=== PATIENT | female | born 1945 | race Caucasian/White ===

== ENCOUNTER 2017-08-22 11:13 | Outpatient (CLI) | payer MEDICARE, OTHER ==
--- NOTE | 2017-08-24 14:02 | Mammography Report ---
DATE OF SERVICE: 08/22/2017 DIGITAL SCREENING MAMMOGRAM: 08/23/2017 CLINICAL INDICATION: A 71-year-old with history of benign biopsy for screening. COMPARISON: 07/2016, 02/2015, 12/2013, 11/2012, 06/2011, 05/2010, 04/2010. TECHNIQUE: Routine CC and MLO projections were obtained of the breasts. FINDINGS: The breasts demonstrate scattered fibroglandular densities bilaterally. In the left upper outer central breast, there is a possible developing density. Further evaluation with spot compression vie ws and possible ultrasound is recommended. No mammographically suspicious findings are appreciated in the r ight breast. IMPRESSION: Incomplete examination. RECOMMENDATION: Additional evaluation of the left breast as above. BIRADS CATEGORY 0 - Incomplete. STANDARD QUALIFYING STATEMENTS: 1. This examination was reviewed with the aid of Computer-Aided Detection (CAD). 2. A negative or benign imaging report should not delay biopsy if clinically suspicious findings are present. Consider surgical consultation if warranted. More than 5% of cancers are not identified by imaging. 3. Dense breasts may obscure an underlying neoplasm. TD: 08/23/2017 11:07
== END 2017-08-22 11:14 | disposition home or self-care (01) ==
LOC: DI 11:13
PROVIDERS: ATTEND Internal Medicine
DX: Z12.31 Encounter for screening mammogram for malignant neoplasm of breast (principal); R92.8 Other abnormal and inconclusive findings on diagnostic imaging of breast
CPT/HCPCS: 77067

== ENCOUNTER 2017-09-17 12:46 | Outpatient (CLI) | payer MEDICARE, OTHER ==
--- NOTE | 2017-09-17 17:06 | Mammography Report ---
DIAGNOSTIC LEFT MAMMOGRAM: 09/17/2017 CLINICAL INDICATION: Possible developing density left upper outer central breast. TECHNIQUE: Left true lateral and spot compression views. COMPARISON: 08/22/2017, 08/16/2016, 02/24/2015, 01/05/2014, 12/18/2012, 2011, 06/28/2011, 05/31/2010. FINDINGS: The left breast demonstrates scattered fibroglandular densities. The density in question, in the left upper outer central breast, does not persist on additional compression. No underlying mass or architectural distortion is identified. IMPRESSION: NEGATIVE EXAMINATION. RECOMMENDATION: Routine annual screening unless otherwise clinically indicated. BIRADS CATEGORY 1 - NEGATIVE. STANDARD QUALIFYING STATEMENTS 1. This examination was reviewed with the aid of Computed Aided Detection (CAD). 2. A negative x-ray report should not delay biopsy if a dominant or clinically suspicious mass is present. More than 5% of cancers are not identified by x-ray. 3. Dense breasts may obscure an underlying neoplasm. TD: 09/17/2017 17:57 LELA
== END 2017-09-17 12:47 | disposition home or self-care (01) ==
LOC: DI 12:46
PROVIDERS: ATTEND Internal Medicine
DX: R92.8 Other abnormal and inconclusive findings on diagnostic imaging of breast (principal)

== ENCOUNTER 2018-02-03 09:51 | Inpatient (IN) | payer MEDICARE, OTHER ==
[2018-02-03 10:43] LABS: BASOPHILS % (AUTO) 0.6 %; EOSINOPHILS # (AUTO) 0.1 10^3/uL (0.0-0.7); HGB - HEMOGLOBIN 13.7 g/dL (12.0-16.0); LYMPHOCYTES % (AUTO) 13.8 %; MEAN CORPUSCULAR HEMOGLOBIN 32.6 pg (27.0-31.0); MEAN CORPUSCULAR VOLUME 95.9 fL (81.0-99.0); MEAN PLATELET VOLUME 8.6 fL (7.9-10.8); MONOCYTES # (AUTO) 1.2 10^3/uL (0.0-1.0); MONOCYTES % (AUTO) 16.8 %; NEUTROPHILS % (AUTO) 67.8 %; PLT - PLATELET COUNT 201 10^3/uL (130-450); WHITE BLOOD COUNT 7.3 x10^3/uL (4.8-10.8)
[2018-02-03 10:44] LABS: GLUCOSE, URINE (UA) NEGATIVE (NEGATIVE); KETONES,URINE (UA) 15 mg/dL (NEGATIVE); LEUKOCYTE ESTERASE, URINE TRACE (NEGATIVE); NITRITE,URINE POSITIVE (NEGATIVE); OCCULT BLOOD,URINE NEGATIVE (NEGATIVE); PROTEIN,URINE 100 mg/dL (NEGATIVE); UROBILINOGEN,URINE 1 (NORMAL) E.U./dL (NORMAL)
[2018-02-03 10:47] LABS: BILIRUBIN,URINE NEGATIVE (NEGATIVE); CLARITY,URINE HAZY (CLEAR); ICTOTEST,URINE NEGATIVE
[2018-02-03 10:53] LABS: BACTERIA,URINE Moderate /HPF (None Seen); RBC,URINE 0-5 /HPF (0-5); SQUAMOUS EPITHELIAL CELL,UR RARE Squamous (<= Few)
[2018-02-03 10:54] LABS: MUCUS,URINE Marked Strands
[2018-02-03 10:54] LABS: ALBUMIN 3.8 g/dL (3.2-5.5); BILIRUBIN,TOTAL 0.8 mg/dL (0.2-1.0); CALCIUM 9.3 mg/dL (8.5-10.3); CREATININE 0.9 mg/dL (0.4-1.0); TOTAL PROTEIN 7.6 g/dL (6.7-8.2)
--- NOTE | 2018-02-03 11:21 | ED Physician Documentation ---
PD HPI ABD PAIN - Stated complaint Stated Complaint: LOW AB PX - Chief complaint Chief Complaint: Abd Pain - History obtained from History obtained from: Patient - History of Present Illness Timing - onset: How many weeks ago (2) Timing - duration: Weeks (She started with lower abdominal pain 2 weeks ago and that continued for several days. FL consistent with prior episodes of diverticulitis. She went to her primary care Dr. Gamez who prescribed doxycycline twice daily. The patient did not feel improvement over the following week. She went back to the office 3 days ago on with the similar symptoms and a benign abdominal exam and so was changed to oral medications of Cipro and Flagyl. The patient states she started having increased lower abdominal pain with a feeling of bloating and some episodes of vomiting Sunday which was 2 days ago and yesterday. She has not had as much oral intake because of persistent nausea. She comes to the ER today because of continued symptoms. She denies any fever. She has not had any diarrhea. She states she had a very small bowel movement yesterday.) Timing - details: Gradual onset, Still present Quality: Cramping, Aching Location: Periumbilical, Other (lower abd) Radiation: Lower back Improved by: No: Vomiting Worsened by: Eating, Position (feels better reclined, worse flat), Palpation Associated symptoms: Nausea, Vomiting (few times since 2 days ago). No: Fever, Hematemesis, Diarrhea, Dysuria Similar symptoms before: Diagnosis (diverticulitis couple times in the past) Recently seen: Clinic Review of Systems Constitutional: denies: Fever Nose: denies: Rhinorrhea / runny nose, Congestion Throat: denies: Sore throat Cardiac: denies: Chest pain / pressure, Palpitations Respiratory: denies: Dyspnea, Cough GI: reports: Abdominal Pain, Abdominal Swelling (the past 2-3 days), Nausea, Vomiting (few times). denies: Constipation, Diarrhea, Bloody / black stool : denies: Dysuria, Frequency Skin: denies: Rash, Lesions Neurologic: reports: Generalized weakness. denies: Focal weakness, Numbness, Near syncope, Altered mental status Endocrine: denies: Weight loss Immunocompromised: denies: Immunocompromised PD PAST MEDICAL HISTORY - Past Medical History Cardiovascular: None Respiratory: None Endocrine/Autoimmune: HyPOthyroidism GI: Diverticulitis : None HEENT: None Psych: None Musculoskeletal: None, Osteoporosis Derm: None - Present Medications Home Medications: Ambulatory Orders Medication Instructions Recorded Confirmed Acyclovir [Zovirax] 800 mg PO DAILY 01/31/13 01/31/13 Levothyroxine Sodium [Levoxyl] 125 mcg PO DAILY 01/31/13 01/31/13 - Allergies Allergies/Adverse Reactions: Allergies Allergy/AdvReac Type Severity Reaction Status Date / Time Sulfa (Sulfonamide AdvReac Itching Verified 02/03/18 10:11 Antibiotics) PD ED PE NORMAL - Vitals Vital signs reviewed: Yes - General General: Alert and oriented X 3, Well developed/nourished, Other (appears uncomfortable) - HEENT HEENT: Pharynx benign. No: Moist mucous membranes - Neck Neck: Supple, no meningeal sign, No adenopathy - Cardiac Cardiac: RRR, No murmur - Respiratory Respiratory: Clear bilaterally - Abdomen Abdomen: Soft, No organomegaly, Other (She has a feeling of distention in the lower part of the abdomen. It is not tense. There is general tenderness in the lower half of the abdomen with some mild guarding. There is no percussion or rebound tenderness. The upper abdomen is not tender. There are no inguinal hernias felt. There is no femoral adenopathy.). No: Normal bowel sounds ( increased) - Female Female : Deferred - Rectal Rectal: Deferred - Back Back: No CVA TTP - Derm Derm: Normal color, Warm and dry - Extremities Extremities: No tenderness to palpate, Normal ROM s pain, No edema, No calf tenderness / cord - Neuro Neuro: Alert and oriented X 3, No motor deficit, Normal speech Results - Vitals Vitals: Vital Signs - 24 hr 02/03/18 02/03/18 02/03/18 10:07 15:13 16:35 Temperature 36.5 C Heart Rate 73 57 L 56 L Respiratory 15 16 16 Rate Blood Pressure 145/81 H 125/69 123/88 H O2 Saturation 99 100 100 02/03/18 18:19 Temperature Heart Rate 74 Respiratory 20 Rate Blood Pressure 150/81 H O2 Saturation 100 Oxygen O2 Source Room air - Labs Labs: Laboratory Tests 02/03/18 02/03/18 02/03/18 10:30 10:38 10:38 WBC 7.3 RBC 4.20 Hgb 13.7 Hct 40.2 MCV 95.9 MCH 32.6 H MCHC 34.0 RDW 13.0 Plt Count 201 MPV 8.6 Neut # (Auto) 5.0 Lymph # (Auto) 1.0 L [place] # (Auto) 1.2 H Eos # (Auto) 0.1 Baso # (Auto) 0.0 Absolute Nucleated RBC 0.00 Nucleated RBC % 0.0 Sodium 136 Potassium 3.4 L Chloride 100 L Carbon Dioxide 27 Anion Gap 9.0 BUN 14 Creatinine 0.9 Estimated GFR (MDRD) 62 L Glucose 117 H Lactic Acid Calcium 9.3 Total Bilirubin 0.8 AST 28 ALT 18 Alkaline Phosphatase 59 Total Protein 7.6 Albumin 3.8 Globulin 3.8 Albumin/Globulin Ratio 1.0 Lipase 16 L Urine Color DARK YELLOW Urine Clarity HAZY Urine pH 5.0 Ur Specific [place] >=1.030 H Urine Protein 100 H Urine Glucose (UA) NEGATIVE Urine Ketones 15 H Urine Occult Blood NEGATIVE Urine Nitrite POSITIVE H Urine Bilirubin NEGATIVE Urine Urobilinogen 1 (NORMAL) Ur Leukocyte Esterase TRACE H Urine RBC 0-5 Urine WBC 6-10 H Ur Squamous Epith Cells RARE Squamous Urine Bacteria Moderate H Urine Mucus Marked Strands Ur Microscopic Review INDICATED Urine Culture Comments INDICATED 02/03/18 14:20 WBC RBC Hgb Hct MCV MCH MCHC RDW Plt Count MPV Neut # (Auto) Lymph # (Auto) [place] # (Auto) Eos # (Auto) Baso # (Auto) Absolute Nucleated RBC Nucleated RBC % Sodium Potassium Chloride Carbon Dioxide Anion Gap BUN Creatinine Estimated GFR (MDRD) Glucose Lactic Acid 0.9 Calcium Total Bilirubin AST ALT Alkaline Phosphatase Total Protein Albumin Globulin Albumin/Globulin Ratio Lipase Urine Color Urine Clarity Urine pH Ur Specific [place] Urine Protein Urine Glucose (UA) Urine Ketones Urine Occult Blood Urine Nitrite Urine Bilirubin Urine Urobilinogen Ur Leukocyte Esterase Urine RBC Urine WBC Ur Squamous Epith Cells Urine Bacteria Urine Mucus Ur Microscopic Review Urine Culture Comments - Rads (name of study) abd/pelvic CT Radiology: Prelim report reviewed (sigmoid diverticulitis without abscess nor perforation; also cecal volvulus), EMP read contemporaneously repeat CT with oral contrast Radiology: Prelim report reviewed (again seen is the cecal volvulus with some contrast getting through the tight area. Again is the diverticulitis. ) PD MEDICAL DECISION MAKING - ED course Complexity details: reviewed results (Initial CT report where showing some stranding and inflammation around the sigmoid colon consistent with diverticulitis. They also had a reading of dilation of the cecum with some decompression and twisting around its mesentery suggestive of cecal volvulus. There is no cecal wall thickening or adjacent fat stranding or fluid however. Surgical consultation is recommended.), re-evaluated patient (I updated the patient on the findings and the need for repeat CT scan. We will be having her in the hospital at least for the failed outpatient treatment of the diverticulitis. She was given IV antibiotics here with an initial presumption. However there is now concern for the findings of the volvulus on the CT scan and that would need to be better evaluated by a repeat CT with oral contrast and a surgical consultation.), d/w wardrobe image consultant (Dr. Hawkins - who asks for rpeat CT with PO contrast. Then he comes to the ER to admit the patient. ) - Sepsis Event Vital Signs: Vital Signs - 24 hr 02/03/18 02/03/18 02/03/18 10:07 15:13 16:35 Temperature 36.5 C Heart Rate 73 57 L 56 L Respiratory 15 16 16 Rate Blood Pressure 145/81 H 125/69 123/88 H O2 Saturation 99 100 100 02/03/18 18:19 Temperature Heart Rate 74 Respiratory 20 Rate Blood Pressure 150/81 H O2 Saturation 100 Oxygen O2 Source Room air Departure - Departure Disposition: 66 [facility] DC/Xfer Clinical Impression: Abdominal pain, Cecal volvulus, Sigmoid diverticulitis Condition: Stable
[2018-02-03] MEDS ORDERED: cefTRIAXone 1 GM in SODIUM CHLORIDE 0.9% MINIBAG 100 ML IV STA (11:43)
[2018-02-03] MEDS ORDERED: SODIUM CHLORIDE 0.9% 1,000 ML IV ONE ×3 (11:43→16:54)
[2018-02-03] MEDS ORDERED: ONDANSETRON 4 MG/2 ML VIAL IVP STA (11:43)
[2018-02-03] MEDS ORDERED: metroNIDAZOLE 500 MG/100 ML 500 MG/100 ML BAG IV ONE (11:44)
[2018-02-03] MEDS ORDERED: KETOROLAC 15 MG/ML VIAL IVP STA (11:44)
[2018-02-03] MEDS ORDERED: MORPHINE 2 MG/ML SYRINGE IVP STA (11:45)
[2018-02-03] MEDS ORDERED: IOPAMIDOL-300 100 ML VIAL ONE (12:00)
[2018-02-03] MEDS ORDERED: IOPAMIDOL-300 100 ML VIAL IVP ONE (13:23)
--- NOTE | 2018-02-03 13:54 | CT Report ---
EXAM: CT ABDOMEN AND PELVIS EXAM DATE: 02/03/2018 01:23 PM. CLINICAL HISTORY: Lower abdominal pain, h/o diverticulitis. COMPARISONS: 12/29/2009. TECHNIQUE: Routine helical CT imaging was performed through the abdomen and pelvis. IV contrast: 100 cc Isovue-300. Enteric contrast: No. Reconstructions: Coronal and sagittal. In accordance with CT protocol optimization, one or more of the following dose reduction techniques w ere utilized for this exam: automated exposure control, adjustment of mA and/or KV based on patient s ize, or use of iterative reconstructive technique. FINDINGS: Lung Bases: Unremarkable. Liver: Normal. No masses. Gallbladder/Bile Ducts: Unremarkable. Spleen: Normal. Pancreas: Normal. Adrenal Glands: Normal. Kidneys: Normal. No masses or hydronephrosis. Peritoneal Cavity/Bowel: No free fluid, free air, or adenopathy. No evidence of small bowel obstructi on. The cecum is displaced medially and superiorly with twisting around its mesentery, as appreciated on coronal images (series 5, images 16-19). Maximum cecal diameter measures up to 6.4 cm (series 3 i mage 30). There is gas and layering fluid within the cecum. There is a transition point in the right side of the abdomen (series 3 image 39). There is no cecal wall thickening, adjacent fat stranding, o r fluid. There is extensive diverticulosis of the sigmoid colon. There is mild wall thickening and adjacent fa t stranding of the sigmoid colon, suggestive of acute diverticulitis. No free fluid, free air, or abs cess formation. The appendix is not well visualized. Punctate densities at the margin of the cecum suggest prior appe ndectomy. There is no inflammatory change adjacent to the cecum to suggest acute appendicitis. Pelvic Organs: Normal. The bladder and visualized pelvic organs are within normal limits. Vasculature: No aneurysms or other significant abnormality. Bones: No significant abnormality. Other: None. IMPRESSION: 1. Findings consistent with cecal volvulus. Maximum cecal diameter measures up to 6.4 cm. No wall thi ckening, mesenteric edema, or free fluid. Surgical consultation is recommended. 2. Extensive diverticulosis of the sigmoid colon. Mild wall thickening and adjacent fat stranding is suspicious for acute diverticulitis. No evidence of perforation or abscess formation. [facility] Referring Provider Line: [phone] SITE ID: [id number]
[2018-02-03] MEDS ORDERED: IOPAMIDOL-300 50 ML VIAL ONE (14:26)
[2018-02-03] MEDS: ONDANSETRON 4 MG/2 ML VIAL IVP STA (15:05)
[2018-02-03] MEDS ORDERED: ACETAMINOPHEN 1,000 MG/100 ML 100 ML IV STA (15:45)
--- NOTE | 2018-02-03 16:40 | CT Report ---
EXAM: CT ABDOMEN AND PELVIS EXAM DATE: 02/03/2018 04:05 PM. CLINICAL HISTORY: Give oral contrast please. COMPARISONS: CT abdomen and pelvis today with intravenous contrast.. TECHNIQUE: Routine helical CT imaging was performed through the abdomen and pelvis. IV contrast: No. Enteric contrast: Yes. Reconstructions: Coronal and sagittal. In accordance with CT protocol optimization, one or more of the following dose reduction techniques w ere utilized for this exam: automated exposure control, adjustment of mA and/or KV based on patient s ize, or use of iterative reconstructive technique. FINDINGS: Lung Bases: Unremarkable. Liver: Normal. No masses. Gallbladder/Bile Ducts: Unremarkable. Spleen: Normal in size. Pancreas: Unremarkable. Adrenal Glands: Normal. Kidneys: There is contrast within the collecting system of both kidneys. There is no hydronephrosis i dentified. Peritoneal Cavity/Bowel: The cecum is ectopic and is located in the anterior midline upper abdomen. T he diameter of the cecum measures 8.3 cm. There is oral contrast material located within the cecum. T here is focal narrowing of the ascending colon which makes a spiral turn in the right lower quadrant. There is oral contrast within the lumen of the ascending colon distal to this narrowing. There is wa ll thickening and stranding around the distal sigmoid colon in the pelvis. Fat stranding is seen in t he low right pelvis. Pelvic Organs: Urinary bladder is filled with contrast material. Vasculature: The abdominal aorta is normal in caliber. Bones: No significant abnormality. Other: None. IMPRESSION: 1. 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 2. Some of the oral contrast has passed through the ileocecal valve into the cecum, and beyond the na rrowed area in the proximal ascending colon to the distal ascending colon. 3. Thickening and stranding around the distal sigmoid colon in the low pelvis suspicious for colitis, diverticulitis or neoplasm. 4. No pneumatosis, perforation, or abscess. [facility] Referring Provider Line: [phone] SITE ID: [id number]
[2018-02-03] MEDS ORDERED: PROMETHAZINE 25 MG/1 ML VIAL IM PRN (19:18)
[2018-02-03] MEDS ORDERED: ONDANSETRON 4 MG/2 ML VIAL IVP PRN (19:18)
[2018-02-03] MEDS: MORPHINE 2 MG/ML SYRINGE IVP PRN ×2 (20:06→22:50)
--- NOTE | 2018-02-03 20:38 | CONSULTATION NOTE ---
Referring Provider Name of Referring Provider:: Dr. Tarun Veras Consult Date: 02/03/18 Chief Complaint - Chief Complaint Chief Complaint: Abdominal pain History of Present Illness - Admitted From Admitted From:: [facility] - History Obtained From Records Reviewed: Yes History obtained from: Chart, patient, family, friends Exam Limitations: None - History of Present Illness HPI Comment/Other: This very pleasant 72 year old female presented to [facility] ED with a several week history of diverticulitis that was interestingly initially treated with doxycycline. When this did not help the patient was switched to ciprofloxacin and flagyl. This seemed to help a bit more but when persistent abdominal pain and bloating resulted in nausea and vomiting the patient presented to the ED for evaluation. The patient's last bowel movement was the day prior to presentation and was small in size. To my knowledge the patient has not had a colonoscopy. History - Past Medical History Cardiovascular: reports: None Respiratory: reports: None Endocrine/Autoimmune: reports: HyPOthyroidism GI: reports: Diverticulitis : reports: None HEENT: reports: None Psych: reports: None Musculoskeletal: reports: None, Osteoporosis Derm: reports: None MRSA Hx?: No Meds/Allgy - Home Medications Home Medications: Ambulatory Orders Medication Instructions Recorded Confirmed Levothyroxine Sodium [Levoxyl] 100 mcg PO DAILY 01/31/13 02/04/18 Cyclosporine [Restasis] 1 each OP BID 02/03/18 02/04/18 Acyclovir 400 mg PO .5 TIMES DAILY X5DAY PRN 02/04/18 02/04/18 Amox/Clav 875/125 [Augmentin 1 tab PO BID #8 tablet 02/06/18 875/125] - Allergies Allergies/Adverse Reactions: Allergies Allergy/AdvReac Type Severity Reaction Status Date / Time Sulfa (Sulfonamide AdvReac Itching Verified 02/03/18 10:11 Antibiotics) Review of Systems - Cardiovascular Cariovascular: denies: Irregular heart rate, Palpitations, Chest pain - Respiratory Respiratory: denies: Cough, Sputum production, Wheezing, Hemoptysis - Gastrointestinal Gastrointestinal: reports: Abdominal pain, Abdominal distention, Nausea, Vomiting - Genitourinary Genitourinary: denies: Dysuria - Psychiatric Psychiatric: denies: Depression, Suicidal Exam - Vital Signs Reviewed Vital Signs: Yes Vital Signs: Vital Signs x48h Pulse Resp BP Pulse Ox 02/03/18 18:19 74 20 150/81 H 100 02/03/18 16:35 56 L 16 123/88 H 100 02/03/18 15:13 57 L 16 125/69 100 - Physical Exam General Appearance: positive: No acute distress Eyes Bilateral: positive: No lid inflammation, Conjunctivae nml, No scleral icterus ENT: positive: Dry mucous membranes Neck: positive: Trachea midline Respiratory: positive: Chest non-tender, No respiratory distress Cardiovascular: positive: Regular rate & rhythm Abdomen: positive: Other (Slight distention but only slight with some decreased bowel sounds. No peritoneal findings and no palpable hepatospenomegaly. 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 The treatment for cecal volvulus is a RIGHT hemicolectomy whereas the treatment for recurrent sigmoid diverticulitis is also resection but a sigmoid resection. If both of these were to be done then the patient would have very little colon remaining and would almost certainly be saddled with lifelong diarrhea. The other question that has not been answered is whether or not the findings in the sigmoid colon represent recurrent diverticulitis or a malignancy. This surgical dilemma was discussed at length with the patient. I think that the way to proceed is with a colonoscopy (as prepped as I can get her from below) in order to answer the question of malignancy versus diverticulitis. Then armed with this information a decision could be entertained to resect the sigmoid colon and use the redundant right and transverse colon to perform the colocolostomy thus preserving the greatest amount of colon and hopefully avoiding diarrhea. I have discussed this at length with the patient but explained that I would be heading out of town and would not be able to see her surgical adventure through and would be handing her care over to my two partners Dr. Pennington and Ryan Barros. Well over 90 minutes of naem-ct-chux time was spent with the majority of it spent in discussion and coordination of her care. - Lab Results Lab results reviewed: Yes Fish Bones: 02/04/18 12:45 02/04/18 12:45 - Diagnostic Imaging Results Diagnostic Imaging Results: positive: Final report reviewed, Discussed with radiologist, Read independently
[2018-02-03] MEDS: D5NS W/20 MEQ KCL 1,000 ML IV SCH (20:39)
[2018-02-03] MEDS: SODIUM CHLORIDE FLUSH 0.9% 10 ML SYRINGE IVP PRN (20:39)
[2018-02-04] MEDS: SODIUM CHLORIDE FLUSH 0.9% 10 ML SYRINGE IVP SCH ×3 (02:26→15:54)
[2018-02-04] MEDS: PANTOPRAZOLE 40 MG VIAL IVP SCH (07:08)
[2018-02-04] MEDS ORDERED: ACETAMINOPHEN 325 MG TABLET PO PRN (07:21)
[2018-02-04] MEDS: MORPHINE 2 MG/ML SYRINGE IVP PRN (08:47)
[2018-02-04] MEDS: ACETAMINOPHEN 1,000 MG/100 ML 100 ML IV PRN (08:52)
[2018-02-04] MEDS: D5NS W/20 MEQ KCL 1,000 ML IV SCH ×2 (08:53→20:07)
[2018-02-04] MEDS: POLYETHYLENE GLYCOL 3350 17 GM PACKET PO SCH (08:58)
[2018-02-04] MEDS: SALINE ENEMA 133 ML BOTTLE RC SCH ×2 (09:16→15:56)
[2018-02-04 13:08] LABS: BASOPHILS % (AUTO) 0.9 %; EOSINOPHILS # (AUTO) 0.2 10^3/uL (0.0-0.7); EOSINOPHILS % (AUTO) 5.1 %; HGB - HEMOGLOBIN 12.7 g/dL (12.0-16.0); LYMPHOCYTES # (AUTO) 1.2 10^3/uL (1.5-3.5); LYMPHOCYTES % (AUTO) 24.4 %; MEAN CORPUSCULAR HEMOGLOBIN 32.7 pg (27.0-31.0); MEAN CORPUSCULAR HGB CONC 33.7 g/dL (32.0-36.0); MEAN PLATELET VOLUME 8.9 fL (7.9-10.8); MONOCYTES # (AUTO) 0.9 10^3/uL (0.0-1.0); MONOCYTES % (AUTO) 19.2 %; NEUTROPHILS # (AUTO) 2.4 10^3/uL (1.5-6.6); NEUTROPHILS % (AUTO) 50.4 %; PLT - PLATELET COUNT 196 10^3/uL (130-450); RED BLOOD COUNT 3.87 10^6/uL (4.20-5.40); RED CELL DISTRIBUTION WIDTH 12.9 % (12.0-15.0); WHITE BLOOD COUNT 4.8 x10^3/uL (4.8-10.8)
[2018-02-04 13:21] LABS: ALBUMIN 3.3 g/dL (3.2-5.5); ALBUMIN/GLOBULIN RATIO 1.1 (1.0-2.2); BILIRUBIN,TOTAL 0.5 mg/dL (0.2-1.0); CALCIUM 8.4 mg/dL (8.5-10.3); CREATININE 0.6 mg/dL (0.4-1.0); TOTAL PROTEIN 6.4 g/dL (6.7-8.2)
--- NOTE | 2018-02-04 13:48 | XRAY Report ---
SUPINE ABDOMEN: 02/04/2018 CLINICAL INDICATION: Cecal volvulus, evaluate gas pattern. FINDINGS: Supine views of the abdomen are compared to previous CT of 02/03/2018. Colonic gas pattern appears more normal. Oral contrast is again seen in the distal small bowel loops. No small bowel dilatation is appreciated. IMPRESSION: IMPROVEMENT IN COLONIC GAS PATTERN FROM 02/03/2018. TD: 02/04/2018 12:58
[2018-02-04] MEDS ORDERED: LACTATED RINGERS 1,000 ML IV ONE (16:07)
[2018-02-04] MEDS ORDERED: MIDAZOLAM 2 MG/2 ML VIAL IVP ONE (16:15)
[2018-02-04] MEDS ORDERED: LIDOCAINE-MPF 2% 5 ML VIAL IM ONE (16:15)
[2018-02-05] MEDS: SODIUM CHLORIDE FLUSH 0.9% 10 ML SYRINGE IVP SCH ×3 (01:23→16:57)
[2018-02-05] MEDS: ACETAMINOPHEN 1,000 MG/100 ML 100 ML IV PRN (05:29)
[2018-02-05] MEDS: D5NS W/20 MEQ KCL 1,000 ML IV SCH ×2 (05:29→16:57)
[2018-02-05] MEDS: SODIUM CHLORIDE FLUSH 0.9% 10 ML SYRINGE IVP PRN (05:54)
[2018-02-05] MEDS: PANTOPRAZOLE 40 MG VIAL IVP SCH (05:54)
[2018-02-05] MEDS: POLYETHYLENE GLYCOL 3350 17 GM PACKET PO SCH (08:06)
--- NOTE | 2018-02-05 10:48 | PROVIDER PROGRESS NOTE ---
Subjective - General Admit Date: 02/03/18 Procedure Date: 02/04/18 Post Op Days: 22 Procedure Performed: Colonoscopy (incomplete) Objective - Patient Data Reviewed Vital Signs: Yes Vital Signs: Vital Signs x48h Temp Pulse Resp BP Pulse Ox 02/05/18 08:00 36.6 C 66 16 115/69 98 Weight: Weight 02/03/18 02/04/18 02/05/18 23:59 23:59 23:59 Weight (kg) 67 kg Intake & Output: Intake and Output Totals x24h 02/03/18 02/04/18 02/05/18 23:59 23:59 23:59 Intake Total 2234.747 1822.333 1276.667 Balance 2181.863 5546.333 1276.667 - Lab Results Lab Results: 02/04/18 12:45 02/04/18 12:45 Other Lab Results: Lab Results x24hrs 02/04/18 02/04/18 02/04/18 Range/Units 12:45 12:45 12:45 WBC 4.8 (4.8-10.8) x10^3/uL RBC 3.87 L (4.20-5.40) 10^6/uL Hgb 12.7 (12.0-16.0) g/dL Hct 37.6 (37.0-47.0) % MCV 97.0 (81.0-99.0) fL MCH 32.7 H (27.0-31.0) pg MCHC 33.7 (32.0-36.0) g/dL RDW 12.9 (12.0-15.0) % Plt Count 196 (130-450) 10^3/uL MPV 8.9 (7.9-10.8) fL Neut # (Auto) 2.4 (1.5-6.6) 10^3/uL Lymph # (Auto) 1.2 L (1.5-3.5) 10^3/uL Rabun # (Auto) 0.9 (0.0-1.0) 10^3/uL Eos # (Auto) 0.2 (0.0-0.7) 10^3/uL Baso # (Auto) 0.0 (0.0-0.1) 10^3/uL Absolute Nucleated RBC 0.00 x10^3/uL Nucleated RBC % 0.0 /100WBC Sodium 139 (135-145) mmol/L Potassium 3.4 L (3.5-5.0) mmol/L Chloride 109 (101-111) mmol/L Carbon Dioxide 24 (21-32) mmol/L Anion Gap 6.0 (6-13) BUN 5 L (6-20) mg/dL Creatinine 0.6 (0.4-1.0) mg/dL Estimated GFR (MDRD) 99 (>89) Glucose 112 H (70-100) mg/dL Calcium 8.4 L (8.5-10.3) mg/dL Total Bilirubin 0.5 (0.2-1.0) mg/dL AST 28 (10-42) IU/L ALT 15 (10-60) IU/L Alkaline Phosphatase 48 (42-121) IU/L Total Protein 6.4 L (6.7-8.2) g/dL Albumin 3.3 (3.2-5.5) g/dL Globulin 3.1 (2.1-4.2) g/dL Albumin/Globulin Ratio 1.1 (1.0-2.2) Carcinoembryonic Ag 2.9 ng/mL - Current Medications Current Medications: Current Medications Generic Name Dose Route Start Last Admin Trade Name Freq PRN Reason Stop Dose Admin Potassium Chloride/Dextrose/Sod Cl 1,000 mls @ 100 mls/hr 02/03/18 20:00 08/13 05:29 IV 100 mls/hr .Q10H SANTHOSH Administration Acetaminophen 100 mls @ 400 mls/hr 02/04/18 07:25 02/05/18 05:53 Ofirmev IV Infused Q6HR PRN Infusion PAIN Morphine Sulfate 2 mg 02/03/18 19:18 02/04/18 08:47 Morphine IVP 2 mg Q2H PRN Administration Pain 8 to 10 Pantoprazole Sodium 40 mg 02/04/18 07:00 02/05/18 05:54 Protonix IVP 40 mg QDAC SANTHOSH Administration Polyethylene Glycol 17 gm 02/04/18 09:00 02/05/18 08:06 Miralax PO Not Given DAILY SANTHOSH Sodium Chloride 10 ml 02/03/18 19:06 02/05/18 05:54 Normal Saline Flush 0.9% IVP 10 ml PRN PRN Administration NEEDED PER PROVIDER ORDERS Sodium Chloride 10 ml 02/04/18 01:00 02/05/18 08:06 Normal Saline Flush 0.9% IVP Not Given 0100,0900,1700 SANTHOSH - Physical Exam General Appearance: positive: Mild distress Eyes Bilateral: positive: No lid inflammation, Conjunctivae nml, No scleral icterus ENT: positive: No signs of dehydration Neck: positive: Trachea midline Respiratory: positive: Chest non-tender, No respiratory distress, Breath sounds nml Cardiovascular: positive: Regular rate & rhythm Abdomen: positive: Tenderness, Other (Subjectively the patient feels better and has passed some gas. Still with slight distention but again slightly improved. Positive bowel sounds.) Skin: positive: Color nml Extremities: positive: Nml appearance Neurologic/Psychiatric: positive: Oriented x3 Impression/Plan - Problem List Problem List: The patient had an incomplete colonoscopy yesterday due to sigmoid diverticulitis which prevented the safe placement of the colonoscope past the area of the diverticulitis. Now the debate begins as mentioned in the consultation the treatment of the cecal volvulus would be a right hemicolectomy whereas the sigmoid colon now must be surgically address hopefully sooner rather than later. Now with a high grade obstruction how does one prep the colon for the resection? The patient, during our conversations, has made it clear that she does not want a colostomy and I explained to her that with all colon surgery no one can guarantee no colostomy. I have initiated speaking with my surgical partners as I will be out of town and the patient's surgical decision making and possible surgery should certainly be discussed with them. I also explained to the patient that I have two partner and that between the 3 of us there are 4 opinions on what to do. In other words I explained to her that the problems of volvulus and sigmoid diverticulitis happen not infrequently but together they are a rare occurence. I think a gastrograffin enema is in order to help differentiate further the the disease process in her sigmoid colon as well as determine the grade of the partial obstruction.
[2018-02-05] MEDS: LEVOTHYROXINE 100 MCG TABLET PO SCH (20:58)
[2018-02-06] MEDS: SODIUM CHLORIDE FLUSH 0.9% 10 ML SYRINGE IVP SCH ×2 (00:08→07:15)
[2018-02-06] MEDS: D5NS W/20 MEQ KCL 1,000 ML IV SCH ×2 (02:19→13:17)
[2018-02-06] MEDS: LEVOTHYROXINE 100 MCG TABLET PO SCH (04:50)
[2018-02-06] MEDS: PANTOPRAZOLE 40 MG VIAL IVP SCH (06:27)
[2018-02-06] MEDS: SODIUM CHLORIDE FLUSH 0.9% 10 ML SYRINGE IVP PRN (06:27)
[2018-02-06] MEDS: POLYETHYLENE GLYCOL 3350 17 GM PACKET PO SCH (07:15)
--- NOTE | 2018-02-06 08:29 | XRAY Report ---
Procedure Date: 02/06/2018 Accession Number: [id number] / [id number] Procedure: XR - Abdomen Acute CPT Code: FULL RESULT: EXAM: ABDOMINAL SERIES AND PA CHEST EXAM DATE: 02/06/2018 06:32 AM. CLINICAL HISTORY: Abdominal distension. COMPARISON: 02/04/2018. 02/03/2018. TECHNIQUE: 2 views abdomen and 1 view chest. FINDINGS: CHEST: Lungs/Pleura: Linear right medial lower lung parenchymal scarring. No consolidation. No pneumothorax. Mediastinum: Heart size upper normal. Aorta is mildly tortuous. ABDOMEN: Bowel Gas Pattern: Mild to moderate gaseous distention of small bowel and colon. Contrast is present in the colon. No portal venous gas or pneumatosis. Free Air: None. Other: Mild degenerative changes. IMPRESSION: 1. No acute disease in the chest. 2. Mild to moderate gaseous distention of small bowel and colon without evidence for obstruction. Contrast present in the colon. RADIA
[2018-02-06] MEDS ORDERED: AMOX/CLAV 875 MG/125 MG TABLET PO SCH (14:00)
[2018-02-06 16:08] VITALS: BP 126/85
--- NOTE | 2018-02-06 18:16 | Discharge Plan ---
Discharge Plan Disposition: Home, Self Care Prescriptions: Amox/Clav 875/125 [Augmentin 875/125] 1 tab PO BID #8 tablet Diet: Regular (low residual) Shower Restrictions: No Driving Restrictions: No Weight Bearing: Full Weight No Smoking: If you smoke, Please STOP! Call for help. Follow-up with: Gini Gamez MD [Primary Care Provider] - 2 Weeks Gorge Barros MD [Provider Admit Priv/Credential] - 2 Weeks
[2018-02-06] MEDS ORDERED: LEVOTHYROXINE 100 MCG TABLET PO SCH (21:00)
--- NOTE | 2018-02-07 01:41 | PROVIDER PROGRESS NOTE ---
Subjective - General Admit Date: 02/03/18 - Review of Systems General: positive: No symptoms Gastrointestinal: positive: No symptoms Objective - Patient Data Intake & Output: Intake and Output Totals x24h 02/05/18 02/06/18 02/07/18 23:59 23:59 23:59 Intake Total 3304.667 2866.667 Balance 3304.667 2866.667 - Lab Results Lab Results: 02/04/18 12:45 02/04/18 12:45 - Physical Exam Abdomen: positive: Non-tender Impression/Plan - Problem List Problem List: 1) recurrent diverticulitis. currently on augmentin with no abdominal symptoms. 2) possible sigmoid obstruction seen on colonoscopy. Gastrograffin enema today. 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 Will be having gastrograffin study today to r/u this out.
[2018-02-07] MEDS ORDERED: IOPAMIDOL-300 50 ML VIAL PO ONE (08:26)
--- NOTE | 2018-02-07 11:13 | DISCHARGE SUMMARY ---
Physician: Gorge Barros MD DATE OF ADMISSION: 02/03/2018 DATE OF DISCHARGE: 02/06/2018 REASON FOR ADMISSION: Abdominal pain. HISTORY OF PRESENT ILLNESS: The patient is a 72-year-old female who has had recurrent lower abdominal pain that was considered to be secondary to diverticulitis. She had been treated with doxycycline with some improvement, but continued abdominal pain. This has been going on for approximately 2 weeks now. She then had continued abdominal pain and was started on Cipro and Flagyl. Because of increasing pain in the lower pelvic area on the right side, she came to the emergency room to be evaluated. She had some nausea and vomiting earlier, but had not had any continuation. She had denied any fever. She had a small bowel movement prior to coming into the hospital. In the emergency room, she had a CT scan of the abdomen and pelvis, which showed a possible cecal volvulus along with thickening of the sigmoid colon with some stranding consistent with early diverticulitis. PAST MEDICAL HISTORY 1. Hypothyroidism. 2. Osteoporosis. MEDICATIONS 1. Acyclovir. 2. Levoxyl. ALLERGIES: SULFA MEDICATIONS. SOCIAL HISTORY: The patient is single. PAST SURGICAL HISTORY: None. PRINCIPAL DIAGNOSIS: Recurrent diverticulitis. OTHER MEDICAL PROBLEMS: Hypothyroidism. PROCEDURES: The patient underwent an attempted colonoscopy. She had a previous colonoscopy approximately 6 years ago, which according to the patient was normal. HOSPITAL COURSE: The patient was admitted to the hospital. The patient did not have any peritoneal signs. She did have this thickening in the sigmoid colon, which could not be ruled out for cancer. She had multiple enemas and then underwent an attempted colonoscopy. However, this could not be completed as she had narrowing or tortuosity being present. There was severe diverticulosis being present with angulation and tortuosity. Only up into the sigmoid colon was the tip of the colonoscope being able to pass going up approximately 30 cm. The patient had followup abdominal x-rays, which did not reveal any significant pathology. She had decreasing gasping present in the abdomen. Her abdominal pain resolved. The patient had been treated with antibiotics during the hospitalization. She remained afebrile, having a normal white count. She then underwent a Gastrografin enema, which at this time, the results are pending. Review of the films did not show any obstruction being present in the colon, nor any problems with the cecum. She was started on a liquid diet, which she tolerated. She was then discharged home in stable condition. DISCHARGE PROGRAM: Patient will be discharged home. Follow up in Surgical Clinic in 2 weeks. Follow up with primary care in 2 weeks. Low-residual diet for the next week or 2 and then a diet with adequate fiber. We will followup results of her Gastrografin enema. If there are any abnormality, then consideration of a barium enema. I have discussed that if she should have any further abdominal pain, then she is either to call the physician's office or come back to the emergency room. She is to resume her prehospitalization medications. In addition, Augmentin 875 mg 1 tab p.o. b.i.d. for the next 4 days. cc: Tarun Veras M.D. TD: 02/07/2018 01:49
--- NOTE | 2018-02-07 23:29 | XRAY Report ---
Procedure Date: 02/06/2018 Accession Number: [id number] / [id number] Procedure: FL - Barium Enema Single Contrast CPT Code: FULL RESULT: EXAM: Barium Enema Single Contrast DATE: 02/06/2018 12:35 PM CLINICAL HISTORY: Possible sigmoid obstruction vs cecal volvulus COMPARISON: CT 02/03/2018 TECHNIQUE: Single contrast dilute Gastrografin enema FINDINGS: Initial accreditation manager views of the abdomen demonstrate no small bowel dilatation. Residual oral contrast is seen in the colon. The barium enema tip was inserted, the balloon inflated, and single contrast barium enema was performed. There is mild narrowing of the sigmoid colon, without evidence of a fixed mechanical obstruction. Diverticula are present. The remainder of the colon is normal in caliber. The cecum is directed towards the midline, without evidence of volvulus at this time. IMPRESSION: Mild narrowing of the sigmoid colon, without evidence of fixed obstruction. No evidence of volvulus at this time. Fluoroscopy time: 2 minutes 4 seconds; 26 spot images obtained.
== END 2018-02-06 18:50 | disposition home or self-care (01) | DRG 392 ==
LOC: ED 09:51 → MS2 19:06
PROVIDERS: ADMIT Surgery; ATTEND Surgery
PROC: 0DJD8ZZ Inspection of Lower Intestinal Tract, Via Natural or Artificial Opening Endoscopic (ICD-10-PCS; principal; 2018-02-04 14:00)
DX: K56.2 Volvulus (principal); K57.32 Diverticulitis of large intestine without perforation or abscess without bleeding; E03.9 Hypothyroidism, unspecified; M81.0 Age-related osteoporosis without current pathological fracture; Z79.899 Other long term (current) drug therapy
CPT/HCPCS: 36415; 74018; 74022; 74176; 74177; 74270; 80053; 81001; 81003; 82378; 83605; 83690; 85025; 87086; 96361; 96365; 96366; 96367; 96375; 96376; 99283; 99284

== ENCOUNTER 2018-04-12 10:58 | Outpatient (CLI) | payer MEDICARE, OTHER ==
--- NOTE | 2018-04-12 13:08 | XRAY Report ---
Procedure Date: 04/12/2018 Accession Number: [id number] / [id number] Procedure: XR - Hip w/Pelvis 2-3V RT CPT Code: FULL RESULT: EXAM: RIGHT HIP AND PELVIS RADIOGRAPHY EXAM DATE: 04/12/2018 11:21 AM. HISTORY: Hip pain after fall. COMPARISONS: ABDOMEN/PELVIS W/O 02/03/2018. TECHNIQUE: 1 view of the pelvis and 1 view of the hip. FINDINGS: Bones: Normal. No fracture or bone lesion. Joints: There is bilateral femoral acetabular joint space narrowing which is more pronounced on the right, moderate overall. The pubic symphysis and sacroiliac joints are overall unremarkable. Soft Tissues: Normal. No soft tissue swelling. IMPRESSION: Degenerative joint disease. RADIA
== END 2018-04-12 10:59 | disposition home or self-care (01) ==
LOC: DI 10:58
PROVIDERS: ATTEND Internal Medicine
DX: M16.0 Bilateral primary osteoarthritis of hip (principal)

== ENCOUNTER 2019-10-21 12:17 | Outpatient (CLI) | payer MEDICARE, OTHER ==
--- NOTE | 2019-10-29 08:33 | Mammography Report ---
Reason: ROUTINE MAMMO Procedure Date: 10/21/2019 Accession Number: [id number] / [id number] Procedure: CASE - Screening Mammo w/Jose CPT Code: Final Report FULL RESULT: EXAM: Screening Mammo w/Jose DATE: 10/21/2019 12:58 PM CLINICAL HISTORY: Screening encounter. TECHNIQUE: (B) - Bilateral CC and MLO views were obtained. COMPARISON: 09/17/2017 through 05/24/2010. PARENCHYMAL PATTERN: (F) - The breast(s) demonstrate(s) diffuse fatty replacement. FINDINGS: There are no suspicious masses, calcifications, or areas of distortion. IMPRESSION: Negative examination. BI-RADS category 1. RECOMMENDATION: (ANNUAL) - Recommend routine annual screening mammography. BI-RADS CATEGORY: (1) - Negative. STANDARD QUALIFYING STATEMENTS: 1. This examination was not reviewed with the aid of Computer-Aided Detection (CAD). 2. A negative or benign imaging report should not preclude biopsy if clinically suspicious findings are present. 3. Dense breasts may obscure an underlying neoplasm. 4. This examination was reviewed with the aid of 3D breast imaging (tomosynthesis).
== END 2019-10-21 12:18 | disposition home or self-care (01) ==
LOC: DI 12:17
PROVIDERS: ATTEND Internal Medicine
DX: Z12.31 Encounter for screening mammogram for malignant neoplasm of breast (principal)
CPT/HCPCS: 77063; 77067

== ENCOUNTER 2020-02-09 13:54 | Outpatient (CLI) | payer MEDICARE, OTHER ==
--- NOTE | 2020-02-12 09:58 | MRI Report ---
PROCEDURE: Knee LT W/O INDICATIONS: INTERNAL DERANGEMENT OF LEFT KNEE TECHNIQUE: Noncontrast sagittal PD fast spin echo and T2 fast spin echo with fat saturation, sagittal 3-D gradie nt sequence with fat saturation; coronal T1 spin echo and PD fast spin echo with fat saturation, and axial PD fast spin echo with fat saturation through the knee. COMPARISON: None. FINDINGS: Image quality: Excellent. Menisci: The medial and lateral menisci demonstrate normal morphology and internal signal. The meni scal root ligaments appear intact. Cruciate ligaments: The anterior and posterior cruciate ligaments appear intact. Medial structures: The medial collateral ligament appears intact. The posterior oblique ligament, s emimembranosus tendon insertions, and oblique popliteal ligament, and meniscocapsular junction appear intact. Visualized portions of the pes anserinus tendons appear normal. No abnormal bursal fluid. Lateral structures: The lateral collateral ligament, long and short heads of the biceps femoris tend on appear intact. The popliteus tendon appears normal; the popliteofibular ligament appears intact. The posterosuperior and anteroinferior popliteomeniscal fascicles appear intact. The arcuate and fa bellofibular ligaments appear intact, around the lateral inferior geniculate artery. Iliotibial band appears normal. Anterior structures: The quadriceps and patellar tendons appear intact. Patellar alignment is martina l. No femoral trochlear dysplasia or ventral trochlear prominence. No edema in the infrapatellar fa t pad. Bones and cartilage: No bone marrow contusions or fractures. Medial femoral tibial compartment osteo arthritis and low-grade chondromalacia is seen. Articulating cartilages in the lateral femoral tibial compartment and patellofemoral compartment are grossly intact. Joint space: There is small amount of joint fluid. No Zhou?s cyst. Normal appearing synovial plic ae are incidentally noted. IMPRESSION: 1. No evidence of focal meniscal tear. Cruciate ligaments are intact. 2. 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 Small amou nt of joint fluid. No fracture or dislocation. No marrow edema. Reviewed by: Kwabena Samuels MD on 02/12/2020 9:56 AM PDT Approved by: Kwabena Samuels MD on 02/12/2020 9:56 AM PDT Station ID: [id number]
== END 2020-02-09 13:55 | disposition home or self-care (01) ==
LOC: DI 13:54
PROVIDERS: ATTEND Orthopaedic Surgery
DX: M17.12 Unilateral primary osteoarthritis, left knee (principal); M94.262 Chondromalacia, left knee; M25.462 Effusion, left knee

== ENCOUNTER 2020-08-26 11:36 | Emergency (ER) | payer MEDICARE, OTHER ==
[2020-08-26] MEDS ORDERED: SODIUM CHLORIDE 0.9% 1,000 ML IV STA (11:47)
[2020-08-26 12:04] LABS: BILIRUBIN,URINE NEGATIVE (NEGATIVE); GLUCOSE, URINE (UA) NEGATIVE (NEGATIVE); KETONES,URINE (UA) NEGATIVE (NEGATIVE); LEUKOCYTE ESTERASE, URINE NEGATIVE (NEGATIVE); NITRITE,URINE NEGATIVE (NEGATIVE); OCCULT BLOOD,URINE SMALL (NEGATIVE); PROTEIN,URINE NEGATIVE (NEGATIVE); UROBILINOGEN,URINE 0.2 (NORMAL) E.U./dL (NORMAL)
[2020-08-26 12:19] LABS: BACTERIA,URINE Rare /HPF (None Seen); CLARITY,URINE CLEAR (CLEAR); RBC,URINE 0-5 /HPF (0-5); SQUAMOUS EPITHELIAL CELL,UR RARE Squamous (<= Few); WBC,URINE 0-3 /HPF (0-5)
[2020-08-26] MEDS ORDERED: MINERAL OIL ENEMA 133 ML BOTTLE RC STA (12:27)
--- NOTE | 2020-08-26 12:30 | ED Physician Documentation ---
History of Present Illness - Stated complaint Stated Complaint: ABD PAIN - Chief complaint Chief Complaint: Abd Pain - History obtained from History obtained from: Patient - Additonal information Additional information: Patient comes emergency department chief complaint of ongoing constipation and abdominal pain. The patient states that she has not been able to have a real bowel movement since . She states on that day she went down to visit family in [place] and had regular [place] food. She states that she has a history of diverticulitis and normally eats a fairly high-fiber diet. She states that after , she did not have a bowel movement for 3 days and finally went to the emergency department down in [place], where she was staying. She states they did a full work-up, including a CT scan of the abdomen and pelvis, and found that the patient was quite constipated. She states that they started her on MiraLAX and gave her an enema after which she had a large o utput of stool. However, she states that in spite of taking MiraLAX at home, she has not been able to have any further bowel movements. She states she ate a high-fiber diet yesterday, but has not felt like eating anything today. The patient states that she is having pain down in her pelvic area. She does not push when she has a bowel movement because she is afraid this will give her more diverticuli and states that she was told not to push. The patient was instructed to use senna or milk of magnesia at home which she has not done. The patient also has not used any home enemas which she also was instructed to do. She states she does not know how and that she does not feel as though she would be able to do it because of this. No other complaints at this time. Review of Systems Ten Systems: 10 systems reviewed and negative Constitutional: reports: Reviewed and negative Eyes: reports: Reviewed and negative Ears: reports: Reviewed and negative Nose: reports: Reviewed and negative Throat: reports: Reviewed and negative Cardiac: reports: Reviewed and negative Respiratory: reports: Reviewed and negative GI: reports: Abdominal Pain, Constipation : reports: Reviewed and negative Skin: reports: Reviewed and negative Musculoskeletal: reports: Reviewed and negative Neurologic: reports: Reviewed and negative Psychiatric: reports: Reviewed and negative Endocrine: reports: Reviewed and negative Immunocompromised: reports: Reviewed and negative PD PAST MEDICAL HISTORY - Past Medical History Cardiovascular: None Respiratory: None Neuro: Headaches Endocrine/Autoimmune: HyPOthyroidism GI: Diverticulitis : None HEENT: None Psych: None Musculoskeletal: None, Osteoporosis Derm: None - Past Surgical History Past Surgical History: Yes - Present Medications Home Medications: Ambulatory Orders Medication Instructions Recorded Confirmed Levothyroxine Sodium [Levoxyl] 100 mcg PO DAILY 01/31/13 02/04/18 Cyclosporine [Restasis] 1 each OP BID 02/03/18 02/04/18 Acyclovir 400 mg PO .5 TIMES DAILY X5DAY PRN 02/04/18 02/04/18 Amox/Clav 875/125 [Augmentin 1 tab PO BID #8 tablet 02/06/18 875/125] - Allergies Allergies/Adverse Reactions: Allergies Allergy/AdvReac Type Severity Reaction Status Date / Time Sulfa (Sulfonamide AdvReac Itching Verified 02/03/18 10:11 Antibiotics) - Social History Does the pt smoke?: No Smoking Status: Never smoker Does the pt drink ETOH?: No Does the pt have substance abuse?: No - Immunizations Immunizations are current?: Yes PD ED PE NORMAL - Vitals Vital signs reviewed: Yes - General General: Alert and oriented X 3, No acute distress - HEENT HEENT: Atraumatic, PERRL, EOMI, Moist mucous membranes - Neck Neck: Supple, no meningeal sign - Cardiac Cardiac: RRR, No murmur - Respiratory Respiratory: No respiratory distress, Clear bilaterally - Abdomen Abdomen: Soft, Non tender, Non distended - Derm Derm: Normal color, Warm and dry, No rash - Extremities Extremities: No deformity, No edema, No calf tenderness / cord - Neuro Neuro: Alert and oriented X 3 - Psych Psych: Normal mood, Normal affect Results - Vitals Vitals: Oxygen O2 Source Room air - Labs Labs: Laboratory Tests 08/26/20 08/26/20 08/26/20 11:55 12:00 12:00 WBC 9.1 RBC 4.44 Hgb 14.3 Hct 43.9 MCV 98.9 MCH 32.2 H MCHC 32.6 RDW 13.2 Plt Count 216 MPV 11.2 H Neut # (Auto) Not Reportable Lymph # (Auto) Not Reportable Hardy # (Auto) Not Reportable Eos # (Auto) Not Reportable Baso # (Auto) Not Reportable Absolute Nucleated RBC Not Reportable Total Counted 100 Band Neuts % (Manual) 1 Abnorm Lymph % (Manual) 0 Nucleated RBC % Not Reportable Neutrophils # (Manual) 6.1 Lymphocytes # (Manual) 0.9 L Monocytes # (Manual) 2.1 H Eosinophils # (Manual) 0.0 Basophils # (Manual) 0.0 Differential Comment MANUAL DIFFERENTIAL WBC Morphology NORMAL APPEARANCE Platelet Estimate NORMAL (130-450,000) Platelet Morphology NORMAL APPEARANCE RBC Morph Micro Appear NORMAL APPEARANCE Sodium 136 Potassium 3.4 L Chloride 97 L Carbon Dioxide 27 Anion Gap 12.0 BUN 11 Creatinine 0.6 Estimated GFR (MDRD) 98 Glucose 84 Calcium 9.5 Total Bilirubin 1.0 AST 25 ALT 21 Alkaline Phosphatase 83 Total Protein 7.6 Albumin 4.1 Globulin 3.5 Albumin/Globulin Ratio 1.2 Lipase 19 L Urine Color YELLOW Urine Clarity CLEAR Urine pH 6.0 Ur Specific [place] <=1.005 Urine Protein NEGATIVE Urine Glucose (UA) NEGATIVE Urine Ketones NEGATIVE Urine Occult Blood SMALL H Urine Nitrite NEGATIVE Urine Bilirubin NEGATIVE Urine Urobilinogen 0.2 (NORMAL) Ur Leukocyte Esterase NEGATIVE Urine RBC 0-5 Urine WBC 0-3 Ur Squamous Epith Cells RARE Squamous Urine Bacteria Rare Ur Microscopic Review INDICATED Urine Culture Comments NOT INDICATED PD MEDICAL DECISION MAKING - ED course Complexity details: reviewed results, re-evaluated patient, considered differential, d/w patient ED course: The patient was worked up with labs which were unremarkable. She was offered an enema here in the emergency department, but before it could be given, the pt produced a very large BM. She was still very nervous about the idea of constipation, but we have instructed her regarding high-fiber diet, as well as the use of stool softeners and enemas if needed at home. Departure - Departure Disposition: Home, Self Care Clinical Impression: Constipation Qualifiers: Constipation type: unspecified constipation type Qualified Code(s): K59.00 - Constipation, unspecified Condition: Stable Instructions: ED Constipation Comments: You have had a large bowel movement in the emergency department today.You should continue to take the MiraLAX as you were directed to do originally. You may take extra doses for today if you want to try to help your bowels move. Additionally, you will need to go to the store and turkey picker either Dulcolax, senna, or milk of magnesia to assist in the stool softening process. It is important that if you are having trouble with your bowel movements, that you do push when you feel the urge to defecate. If you do not feel an urge to defecate, you should not be pushingthis is what will cause undue strain on your system. If you do not have a bowel movement again in the next 24 hours and still feel as though you have more stool that needs come out, then you need to do an enema at home. You can get this [id number] and it has full instructions as to how it is to be performed. Please continue to eat a high- fiber diet to help your bowels move. Discharge Date/Time: 08/26/20 13:10
[2020-08-26 13:10] VITALS: BP 138/88
[2020-08-26 13:17] LABS: BASOPHILS % (AUTO) 0.4 %; EOSINOPHILS % (AUTO) 0.2 %; HCT - HEMATOCRIT 43.9 % (37.0-47.0); HGB - HEMOGLOBIN 14.3 g/dL (12.0-16.0); LYMPHOCYTES % (AUTO) 11.1 %; MEAN CORPUSCULAR HEMOGLOBIN 32.2 pg (27.0-31.0); MEAN CORPUSCULAR HGB CONC 32.6 g/dL (32.0-36.0); MEAN CORPUSCULAR VOLUME 98.9 fL (81.0-99.0); MEAN PLATELET VOLUME 11.2 fL (7.9-10.8); MONOCYTES % (AUTO) 18.3 %; NEUTROPHILS % (AUTO) 69.8 %; PLT - PLATELET COUNT 216 10^3/uL (130-450); RED BLOOD COUNT 4.44 10^6/uL (4.20-5.40); RED CELL DISTRIBUTION WIDTH 13.2 % (12.0-15.0); WHITE BLOOD COUNT 9.1 x10^3/uL (4.8-10.8)
[2020-08-26 13:20] LABS: ABNORMAL LYMPHS % (MANUAL) 0 %
[2020-08-26 13:31] LABS: ALBUMIN 4.1 g/dL (3.2-5.5); ALBUMIN/GLOBULIN RATIO 1.2 (1.0-2.2); CALCIUM 9.5 mg/dL (8.5-10.3); CREATININE 0.6 mg/dL (0.4-1.0); POTASSIUM 3.4 mmol/L (3.5-5.0); TOTAL PROTEIN 7.6 g/dL (6.7-8.2)
[2020-08-26 14:12] LABS: BAND NEUTROPHILS % (MANUAL) 1 %; LYMPHOCYTES # (MANUAL) 0.9 10^3/uL (1.5-3.5); LYMPHOCYTES % (MANUAL) 10 %; MONOCYTES # (MANUAL) 2.1 10^3/uL (0.0-1.0); NEUTROPHILS # (MANUAL) 6.1 10^3/uL (1.5-6.6)
[2020-08-26 14:16] LABS: DIFFERENTIAL COMMENT MANUAL DIFFERENTIAL; PLATELET ESTIMATE, MANUAL NORMAL (130-450,000) (NORMAL); PLATELET MORPHOLOGY NORMAL APPEARANCE (NORMAL); RBC MORPHOLOGY (MULTIPLE) NORMAL APPEARANCE (NORMAL); WBC MORPHOLOGY (MULTIPLE) NORMAL APPEARANCE (NORMAL)
== END 2020-08-26 13:10 | disposition home or self-care (01) ==
LOC: ED 11:36
DX: K59.00 Constipation, unspecified (principal)
CPT/HCPCS: 80053; 81001; 83690; 85025; 99283; 99284; A9270; 81003; 87086

== ENCOUNTER 2020-08-31 11:01 | Outpatient (CLI) | payer MEDICARE, OTHER ==
--- NOTE | 2020-08-31 11:34 | CT Report ---
PROCEDURE: HEAD WO INDICATIONS: ALTERED MENTAL STATUS TECHNIQUE: Noncontrast 4.5 mm thick angled axial sections acquired from the foramen magnum to the vertex. For r adiation dose reduction, the following was used: automated exposure control, adjustment of mA and/or kV according to patient size. COMPARISON: None. FINDINGS: Image quality: Excellent. CSF spaces: Basal cisterns are patent. No extra-axial fluid collections. Ventricles are normal in size and shape. Brain: Mild global cerebral volume loss and mild chronic microvascular ischemic changes are noted. N o midline shift. No intracranial masses or hemorrhage. Rodgers-white matter interface is normal. Skull and face: Calvarium and visualized facial bones are intact, without suspicious lesions. Sinuses: Visualized sinuses and mastoids are clear. IMPRESSION: No acute intracranial process demonstrated. Mild global cerebral volume loss with chronic microvascular ischemic changes. Reviewed by: Mustapha Durbin MD on 08/31/2020 11:32 AM PST Approved by: Mustapha Durbin MD on 08/31/2020 11:32 AM PST Station ID: [id number]
--- NOTE | 2020-08-31 11:44 | XRAY Report ---
PROCEDURE: Abdomen 1 View X-Ray INDICATIONS: CONSTIPATION TECHNIQUE: 1 view of the abdomen were acquired. COMPARISON: Abdominal radiographs 02/06/2018. FINDINGS: Surgical changes and devices: None. Bowel: No pneumoperitoneum. Scattered small bowel and colonic gas. Small air-fluid levels in the lef t abdomen which appear to be within the colon. Small amount of fecal residue is seen. Gas within the stomach is within normal limits. Soft tissues: No masses; visualized solid organ contours appear normal in size. No suspicious abdom inal calcifications. Bones: No suspicious bony abnormalities. IMPRESSION: Small air-fluid levels on the left abdomen which appear to be within the colon. No dilated loops of b owel are seen. The stomach is within normal limits. Small amount fecal residue is seen. Reviewed by: Matias Rodgers MD on 08/31/2020 10:42 AM [facility] Approved by: Matias Rodgers MD on 08/31/2020 10:42 AM [facility] Station ID: [id number]
== END 2020-08-31 11:02 | disposition home or self-care (01) ==
LOC: DI 11:01
PROVIDERS: ATTEND Internal Medicine
DX: R41.82 Altered mental status, unspecified (principal); R51.9 Headache, unspecified; K59.00 Constipation, unspecified
CPT/HCPCS: 70450

== ENCOUNTER 2020-09-17 12:04 | Emergency (ER) | payer MEDICARE, OTHER ==
[2020-09-17 12:51] LABS: BILIRUBIN,URINE NEGATIVE (NEGATIVE); GLUCOSE, URINE (UA) NEGATIVE (NEGATIVE); KETONES,URINE (UA) NEGATIVE (NEGATIVE); LEUKOCYTE ESTERASE, URINE NEGATIVE (NEGATIVE); NITRITE,URINE NEGATIVE (NEGATIVE); OCCULT BLOOD,URINE TRACE-LYSE (NEGATIVE); PROTEIN,URINE NEGATIVE (NEGATIVE); UROBILINOGEN,URINE 0.2 (NORMAL) E.U./dL (NORMAL)
[2020-09-17 12:52] LABS: CLARITY,URINE CLEAR (CLEAR)
[2020-09-17 13:07] LABS: BASOPHILS # (AUTO) 0.1 10^3/uL (0.0-0.1); BASOPHILS % (AUTO) 0.9 %; EOSINOPHILS % (AUTO) 0.7 %; HGB - HEMOGLOBIN 14.4 g/dL (12.0-16.0); LYMPHOCYTES # (AUTO) 1.8 10^3/uL (1.5-3.5); LYMPHOCYTES % (AUTO) 33.1 %; MEAN CORPUSCULAR HEMOGLOBIN 31.9 pg (27.0-31.0); MEAN CORPUSCULAR HGB CONC 33.5 g/dL (32.0-36.0); MEAN CORPUSCULAR VOLUME 95.3 fL (81.0-99.0); MEAN PLATELET VOLUME 10.8 fL (7.9-10.8); MONOCYTES # (AUTO) 0.9 10^3/uL (0.0-1.0); MONOCYTES % (AUTO) 17.6 %; NEUTROPHILS # (AUTO) 2.5 10^3/uL (1.5-6.6); NEUTROPHILS % (AUTO) 47.5 %; PLT - PLATELET COUNT 183 10^3/uL (130-450); RED BLOOD COUNT 4.51 10^6/uL (4.20-5.40); RED CELL DISTRIBUTION WIDTH 12.8 % (12.0-15.0); WHITE BLOOD COUNT 5.3 x10^3/uL (4.8-10.8)
[2020-09-17 13:16] LABS: ALBUMIN 4.7 g/dL (3.2-5.5); ALBUMIN/GLOBULIN RATIO 1.6 (1.0-2.2); BILIRUBIN,TOTAL 1.3 mg/dL (0.2-1.0); CALCIUM 10.2 mg/dL (8.5-10.3); CREATININE 0.5 mg/dL (0.4-1.0); TOTAL PROTEIN 7.6 g/dL (6.7-8.2)
[2020-09-17] MEDS ORDERED: SALINE ENEMA 133 ML BOTTLE RC STA (15:54)
--- NOTE | 2020-09-17 16:12 | ED Physician Documentation ---
History of Present Illness - Stated complaint Stated Complaint: BLOATED,CONSTIPATED - Chief complaint Chief Complaint: Abd Pain - History obtained from History obtained from: Patient - History of Present Illness Timing: Chronic Pain level max: 0 Pain level now: 0 - Additonal information Additional information: Patient is a 75-year-old female who has chronic constipation. No nausea or vomiting. She states she was taking MiraLAX today without relief. Called her doctor who told her to come to the emergency department. Patient has no abdominal pain. Nothing makes it better or worse. She uses MiraLAX 3-6 times per day. She has been doing this chronically for years. Has a mother's helper, but is not going to see them until the end of September. No fevers. No chills. No blood in the stool. Review of Systems Constitutional: denies: Fever, Chills Cardiac: denies: Chest pain / pressure Respiratory: denies: Cough GI: denies: Vomiting, Diarrhea, Hematemesis, Bloody / black stool : denies: Dysuria Skin: denies: Rash Musculoskeletal: denies: Neck pain, Back pain Neurologic: denies: Headache PD PAST MEDICAL HISTORY - Past Medical History Cardiovascular: None Respiratory: None Neuro: Headaches Endocrine/Autoimmune: HyPOthyroidism GI: Diverticulitis : None HEENT: None Psych: None Musculoskeletal: None, Osteoporosis Derm: None - Past Surgical History Past Surgical History: Yes - Present Medications Home Medications: Ambulatory Orders Medication Instructions Recorded Confirmed Levothyroxine Sodium [Levoxyl] 100 mcg PO DAILY 01/31/13 02/04/18 Cyclosporine [Restasis] 1 each OP BID 02/03/18 02/04/18 Acyclovir 400 mg PO .5 TIMES DAILY X5DAY PRN 02/04/18 02/04/18 Amox/Clav 875/125 [Augmentin 1 tab PO BID #8 tablet 02/06/18 875/125] - Allergies Allergies/Adverse Reactions: Allergies Allergy/AdvReac Type Severity Reaction Status Date / Time Sulfa (Sulfonamide AdvReac Itching Verified 09/17/20 12:09 Antibiotics) - Social History Does the pt smoke?: No Smoking Status: Never smoker Does the pt drink ETOH?: No Does the pt have substance abuse?: No - Immunizations Immunizations are current?: Yes PD ED PE NORMAL - Vitals Vital signs reviewed: Yes - General General: Alert and oriented X 3, No acute distress, Well developed/nourished - HEENT HEENT: Moist mucous membranes - Neck Neck: Supple, no meningeal sign - Cardiac Cardiac: RRR, Strong equal pulses - Respiratory Respiratory: No respiratory distress, Clear bilaterally - Abdomen Abdomen: Soft, Non tender, Non distended - Derm Derm: Warm and dry - Extremities Extremities: No calf tenderness / cord - Neuro Neuro: Alert and oriented X 3 - Psych Psych: Normal mood, Normal affect Results - Vitals Vitals: Vital Signs - 24 hr 09/17/20 09/17/20 09/17/20 12:09 16:02 17:15 Temperature 36.4 C L 36.5 C 36.6 C Heart Rate 60 59 L 82 Respiratory 19 18 18 Rate Blood Pressure 129/82 H 125/81 H 131/65 H O2 Saturation 96 99 100 Oxygen O2 Source Room air - Labs Labs: Laboratory Tests 09/17/20 09/17/20 09/17/20 12:23 12:55 12:55 WBC 5.3 RBC 4.51 Hgb 14.4 Hct 43.0 MCV 95.3 MCH 31.9 H MCHC 33.5 RDW 12.8 Plt Count 183 MPV 10.8 Neut # (Auto) 2.5 Lymph # (Auto) 1.8 Arroyo # (Auto) 0.9 Eos # (Auto) 0.0 Baso # (Auto) 0.1 Absolute Nucleated RBC 0.00 Nucleated RBC % 0.0 Sodium 132 L Potassium 3.3 L Chloride 94 L Carbon Dioxide 22 Anion Gap 16.0 H BUN 11 Creatinine 0.5 Estimated GFR (MDRD) 121 Glucose 84 Calcium 10.2 Total Bilirubin 1.3 H AST 27 ALT 18 Alkaline Phosphatase 77 Total Protein 7.6 Albumin 4.7 Globulin 2.9 Albumin/Globulin Ratio 1.6 Lipase 21 L Urine Color LIGHT YELLOW Urine Clarity CLEAR Urine pH 6.0 Ur Specific [employer] <=1.005 Urine Protein NEGATIVE Urine Glucose (UA) NEGATIVE Urine Ketones NEGATIVE Urine Occult Blood TRACE-LYSE Urine Nitrite NEGATIVE Urine Bilirubin NEGATIVE Urine Urobilinogen 0.2 (NORMAL) Ur Leukocyte Esterase NEGATIVE Ur Microscopic Review NOT INDICATED Urine Culture Comments NOT INDICATED PD MEDICAL DECISION MAKING - ED course Complexity details: reviewed results, re-evaluated patient, considered differential, d/w patient ED course: Patient given an enema here and had good relief of her constipation. 2 large bowel movements. No vomiting. No abdominal pain. Recommend that she talk to her doctor regarding the laxative abuse as this is likely causing colonic dysfunction and motility issues. Patient counseled regarding signs and symptoms for which I believe and urgent re-evaluation would be necessary. Patient with good understanding of and agreement to plan and is comfortable going home at this time This document was made in part using voice recognition software. While efforts are made to proofread this document, sound alike and grammatical errors may occur. Departure - Departure Disposition: 01 Home, Self Care Clinical Impression: Constipation Qualifiers: Constipation type: unspecified constipation type Qualified Code(s): K59.00 - Constipation, unspecified Condition: Good Instructions: ED Constipation Follow-Up: Gini Gamez MD [Primary Care Provider] - Within 1 week Comments: Drink plenty of water. Return if you worsen. Follow up with your mother's helper and doctor for further care. Discharge Date/Time: 09/17/20 17:58
[2020-09-17 17:16] VITALS: BP 131/65
== END 2020-09-17 17:58 | disposition home or self-care (01) ==
LOC: ED 12:04
DX: K59.09 Other constipation (principal); F55.2 Abuse of laxatives
CPT/HCPCS: 36415; 80053; 81003; 83690; 85025; 99283; 99284; A9270; 81001; 87086

== ENCOUNTER 2020-12-01 | Outpatient (CLI) | payer MEDICARE, OTHER | END 2020-12-01 14:01 | disposition EMS.NT | DX: Z03.89 Encounter for observation for other suspected diseases and conditions ruled out (principal) ==

== ENCOUNTER 2021-12-20 08:00 | Outpatient (CLI) | payer MEDICARE, OTHER | END 2021-12-20 08:01 | disposition home or self-care (01) | LOC: LAB.R 08:00 | PROVIDERS: ATTEND Internal Medicine | DX: E03.9 Hypothyroidism, unspecified (principal) | CPT/HCPCS: 84443 ==

== ENCOUNTER 2023-07-27 15:30 | Emergency (ER) | payer MEDICARE, OTHER ==
[2023-07-27 15:46] VITALS: O2SAT 97
--- NOTE | 2023-07-27 15:52 | ED Physician Documentation ---
PD HPI LOWER EXT INJURY - Stated complaint Stated Complaint: RT FOOT PX - Chief complaint Chief Complaint: Trauma Ext - History obtained from History obtained from: Patient, Family - Additional information Additional information: 77-year-old woman presents accompanied by her daughter for the evaluation of right foot pain. History is somewhat difficult because although the patient says she does not have any history of memory difficulties, she clearly has some short-term memory loss and the daughter agrees. Within the last week she had a fall. The patient does not really recall it. She apparently injured her foot and cannot walk. PD PAST MEDICAL HISTORY - Past Medical History Cardiovascular: None Respiratory: None Neuro: Headaches Endocrine/Autoimmune: HyPOthyroidism GI: Diverticulitis : None HEENT: None Psych: None Musculoskeletal: None, Osteoporosis Derm: None - Past Surgical History Past Surgical History: Yes - Present Medications Home Medications: Ambulatory Orders Medication Instructions Recorded Confirmed Levothyroxine Sodium [Levoxyl] 100 mcg PO DAILY 01/31/13 02/04/18 cycloSPORINE [Restasis] 1 each OP BID 02/03/18 02/04/18 Acyclovir 400 mg PO .5 TIMES DAILY X5DAY PRN 02/04/18 02/04/18 Amox/Clav 875/125 [Augmentin 1 tab PO BID #8 tablet 02/06/18 875/125 Tab] - Allergies Allergies/Adverse Reactions: Allergies Allergy/AdvReac Type Severity Reaction Status Date / Time Sulfa (Sulfonamide AdvReac Itching Verified 09/17/20 12:09 Antibiotics) - Social History Does the pt smoke?: No Smoking Status: Never smoker Does the pt drink ETOH?: No Does the pt have substance abuse?: No - Immunizations Immunizations are current?: Yes PD ED PE NORMAL - Vitals Vital signs reviewed: Yes - General General: No acute distress, Well developed/nourished - Extremities Extremities: Other (. Quite tender especially in the area of the first through third metatarsals of the right foot. There is swelling of the entirety of the right foot and a small blister over the distal second metatarsal. No infection. No warmth or redness.) - Neuro Eye Opening: Spontaneous Motor: Obeys Commands Verbal: Confused (She has some significant short-term memory difficulties) GCS Score: 14 Results - Vitals Vitals: Vital Signs - 24 hr 07/27/23 15:40 Temperature 36.9 C Heart Rate 100 Respiratory 16 Rate Blood Pressure 128/83 H O2 Saturation 97 Oxygen O2 Source Room air - Rads (name of study) Three-view x-ray of the right foot demonstrates a fracture of the proximal third metatarsal Relevant Findings:: Final report received, EMP independent interpretation of test PD Medical Decision Making - ED course ED course: 77-year-old woman who seemingly has dementia although no formal diagnosis of same presents for with daughter for right foot injury and is found to have a third metatarsal fracture. The daughter is actually in the process of moving her home with her to the [facility] given that she no longer feels like she is able to care for herself and I am in agreement. She is placed in a boot and up on a walker. I do not think crutches/nonweightbearing would be safe. Discussed need for follow-up with orthopedics in the near future. Departure - Departure Disposition: 01 Home, Self Care Clinical Impression: Metatarsal fracture Qualifiers: Encounter type: initial encounter Metatarsal bone: third Fracture type: closed Fracture alignment: nondisplaced Laterality: right Qualified Code(s): S92.334A - Nondisplaced fracture of third metatarsal bone, right foot, initial encounter for closed fracture Condition: Good Record reviewed to determine appropriate education?: Yes Instructions: ED Fx Foot Comments: She can take Tylenol per package instructions for pain. She should follow-up with an orthopedist near her daughter's home in about a week, call around for an appointment. Until then she can walk and bear weight as tolerated, but you can use the walker for support. Take the x-ray on CD with you to the orthopedics appointment. Elevate is much as possible. Forms: PCP List
--- NOTE | 2023-07-27 16:32 | XRAY Report ---
PROCEDURE: Foot 3 View RT INDICATIONS: foot inj TECHNIQUE: 3 views of the foot were acquired. COMPARISON: None. FINDINGS: Bones: Acute transverse fracture through proximal shaft of third metatarsal bone is seen with minima l lateral displacement at fracture site. Diffuse osteopenia is seen. Osteoarthritic changes are noted throughout right foot.. No suspicious bony lesions. Soft tissues: No suspicious soft tissue calcifications or masses. IMPRESSION: Minimally displaced transverse fracture through proximal shaft of third metatarsal bone as above. Reviewed by: Kwabena Samuels MD on 07/27/2023 4:31 PM PST Approved by: Kwabena Samuels MD on 07/27/2023 4:31 PM PST Station ID: [id number]
[2023-07-27 17:09] VITALS: BP 144/90
== END 2023-07-27 17:14 | disposition home or self-care (01) ==
LOC: ED 15:30
DX: S92.334A Nondisplaced fracture of third metatarsal bone, right foot, initial encounter for closed fracture (principal); W19.XXXA Unspecified fall, initial encounter; E03.9 Hypothyroidism, unspecified; F03.90 Unspecified dementia, unspecified severity, without behavioral disturbance, psychotic disturbance, mood disturbance, and anxiety; Z79.899 Other long term (current) drug therapy
CPT/HCPCS: 99283; 99284